=== PATIENT | male | born 1975 | race African-American/Black ===

== ENCOUNTER 2020-12-15 03:46 | Emergency (ER) | payer MEDICAID ==
[~2020-12-15] VITALS: Ht 193 cm; Wt 136.4 kg
[2020-12-15] MEDS ORDERED: SODIUM BICARBONATE [ADULT] 8.4% 50 MEQ/50 ML SYRINGE IVP ONE (03:47)
[2020-12-15] MEDS ORDERED: 0.9% SODIUM CHLORIDE 10 ML SYRINGE IVP ONE (03:47)
[2020-12-15] MEDS ORDERED: DEXTROSE 50%-WATER 25 GM/50 ML SYRINGE IVP ONE (03:47)
[2020-12-15] MEDS ORDERED: CALCIUM CHLORIDE 100 MG/ML 10 ML SYRINGE IVP ONE (03:47)
[2020-12-15] MEDS ORDERED: CALCIUM GLUCONATE 100 MG/ML 10 ML IVP ONE (03:47)
[2020-12-15] MEDS ORDERED: 0.9% SODIUM CHLORIDE 1,000 ML BAG IV ONE (03:47)
[2020-12-15] MEDS ORDERED: EPINEPHrine 1:10,000 [1 MG/10 ML] SYRINGE IVP ONE (03:47)
[2020-12-15] MEDS: SODIUM CHLORIDE 0.9% 2,000 ML IV ONE (04:10)
[2020-12-15] MEDS: ONDANSETRON HCL 4 MG/2 ML VIAL IVP ONE (04:10)
[2020-12-15] MEDS: FAMOTIDINE 10 MG/ML 2 ML VIAL IVP ONE (04:10)
[2020-12-15 04:47] LABS: BASOPHILS % (AUTO) 0.2 % (0.0-2.0); EOSINOPHILS % (AUTO) 0.2 % (1.0-6.0); HEMATOCRIT 38.1 % (41-53); HEMOGLOBIN 12.2 g/dL (13.5-17.5); LYMPHOCYTES # (AUTO) 2.4 K/uL (1.0-4.8); LYMPHOCYTES % (AUTO) 20.5 % (22.0-44.0); MEAN CORPUSCULAR HGB CONC 32.1 G/dL (31.0-37.0); MEAN CORPUSCULAR VOLUME 84 fL (80-100); MONOCYTES # (AUTO) 0.6 K/uL (0.1-1.0); NEUTROPHILS # (AUTO) 8.5 K/uL (1.8-7.7); NEUTROPHILS % (AUTO) 74.1 % (40.0-70.0); RED BLOOD CELL COUNT(AUTO) 4.52 MIL/uL (4.50-5.90); RED CELL DISTRIBUTION WIDTH 14.7 % (11.5-14.5)
[2020-12-15 04:48] LABS: CALCIUM, TOTAL 8.2 mg/dL (8.8-10.5); CREATININE 6.07 mg/dL (0.60-1.30); POTASSIUM 3.4 mmol/L (3.5-5.1)
[2020-12-15 04:59] LABS: ALBUMIN 3.5 g/dL (3.4-5.0); BILIRUBIN,TOTAL 1.5 mg/dL (0.1-1.0); TOTAL PROTEIN, SERUM 7.4 g/dL (6.4-8.2)
[2020-12-15 05:12] LABS: COVID AG,FIA SOURCE NASOPHARYNGEAL
[2020-12-15 05:20] LABS: PLATELET COUNT (AUTO) 92 K/uL (150-450); PLATELET MORPHOLOGY COMMENT LARGE PLTS PRESENT
[2020-12-15] MEDS ORDERED: 0.9% SODIUM CHLORIDE 10 ML SYRINGE IVP PRN (05:30)
[2020-12-15 05:43] LABS: INR 1.3 (0.9-1.1); PROTHROMBIN TIME 13.5 SEC (9.4-11.6)
[2020-12-15 05:46] LABS: BILIRUBIN,DIRECT 0.5 mg/dL (0.00-0.20)
[2020-12-15 06:00] LABS: LACTIC ACID 11.2 mmol/L (0.4-2.0)
[2020-12-15] MEDS ORDERED: ONDANSETRON HCL 4 MG/2 ML VIAL IVP PRN ×2 (06:00→07:00)
[2020-12-15] MEDS ORDERED: ACETAMINOPHEN 325 MG TABLET PO PRN (06:00)
[2020-12-15 06:50] LABS: ACETAMINOPHEN < 2 mcg/mL (10-30)
[2020-12-15] MEDS: SODIUM CHLORIDE 0.9% 4,100 ML IV ONE (08:01)
[2020-12-15 08:13] LABS: SALICYLATE 1.2 mg/dL (2.8-20.0)
[2020-12-15] MEDS: SODIUM CHLORIDE 0.9% 1,000 ML IV SCH (10:00)
[2020-12-15] MEDS ORDERED: LIDOCAINE 1% 10 ML VIAL ONE (11:21)
[2020-12-15] MEDS ORDERED: SODIUM CHLORIDE 0.9% 250 ML IV ONE (11:22)
[2020-12-15] MEDS: MORPHINE SULFATE 2 MG/ML SYRINGE IVP ONE (12:22)
[2020-12-15 12:43] VITALS: BP 133/93
[2020-12-15 12:47] LABS: BASOPHILS % (AUTO) 0.2 % (0.0-2.0); EOSINOPHILS % (AUTO) 0.1 % (1.0-6.0); HEMATOCRIT 35.9 % (41-53); HEMOGLOBIN 11.2 g/dL (13.5-17.5); LYMPHOCYTES # (AUTO) 0.9 K/uL (1.0-4.8); LYMPHOCYTES % (AUTO) 5.5 % (22.0-44.0); MEAN CORPUSCULAR HEMOGLOBIN 27.1 pg (26.0-34.0); MEAN CORPUSCULAR HGB CONC 31.3 G/dL (31.0-37.0); MEAN CORPUSCULAR VOLUME 87 fL (80-100); MONOCYTES # (AUTO) 0.7 K/uL (0.1-1.0); MONOCYTES % (AUTO) 4.4 % (2.0-9.0); NEUTROPHILS # (AUTO) 14.1 K/uL (1.8-7.7); NEUTROPHILS % (AUTO) 89.8 % (40.0-70.0); PLATELET COUNT (AUTO) 95 K/uL (150-450); RED BLOOD CELL COUNT(AUTO) 4.14 MIL/uL (4.50-5.90); RED CELL DISTRIBUTION WIDTH 14.8 % (11.5-14.5)
[2020-12-15 12:48] LABS: PLATELET MORPHOLOGY COMMENT LARGE PLTS PRESENT
[2020-12-15 13:08] LABS: ALBUMIN 3.1 g/dL (3.4-5.0); BILIRUBIN,DIRECT 0.9 mg/dL (0.00-0.20); BILIRUBIN,TOTAL 1.8 mg/dL (0.1-1.0); CALCIUM, TOTAL 6.8 mg/dL (8.8-10.5); CREATININE 5.95 mg/dL (0.60-1.30); POTASSIUM 4.7 mmol/L (3.5-5.1); TOTAL PROTEIN, SERUM 6.9 g/dL (6.4-8.2)
== END 2020-12-15 16:53 ==
LOC: EMS 03:46
DX: N19 Unspecified kidney failure (principal); D69.6 Thrombocytopenia, unspecified; R74.8 Abnormal levels of other serum enzymes; E87.2 Acidosis; Z20.822 Contact with and (suspected) exposure to COVID-19
CPT/HCPCS: 36415; 74176; 76700; 80053; 82248; 83010; 83605; 83690; 83930; 84145; 85025; 85610; 85730; 87040; 87426; 93005; 93306; 93308; 96361; 96374; 96375; 99285; G0480; J0171; J0610; J2270; J2405; J3490 ×4; J7030; J7050; X7700; 80048; 82247; G0481